=== PATIENT | male | born 1965 | race Caucasian/White ===

== ENCOUNTER 2016-07-08 21:36 | Emergency (ER) | payer MEDICARE, OTHER ==
[~2016-07-08] VITALS: Ht 160 cm; Wt 81.8 kg
[~2016-07-08 21:36] MED LIST: AMLO-218 PO; BACL20TA PO; CEPH-443 PO; CIPR500T4 PO; DIAZ10TA4 PO; FENO145T25 PO; FER325 PO; FOLI-49 PO; GABA-526 PO; HYDR-2086 PO; IMIP25TA3 PO; LORA-441 PO; METO5TAB11 PO; OXYB5TAB7 PO; SENN8.6C3 PO; WARF2.5T PO; ZOLP10TA5 PO
[2016-07-08] MEDS ORDERED: ONDANSETRON 4 MG INJ IV STA (21:47)
[2016-07-08 21:50] VITALS: Ht 160 cm; Wt 81.8 kg
[2016-07-08 22:18] LABS: BASOPHILS % 0.6 % (0.0-2.0); EOSINOPHILS # 0.2 10^3/ul (0.0-0.5); EOSINOPHILS % 2.6 % (0.0-7.0); HEMATOCRIT 45.4 % (42.0-52.0); HEMOGLOBIN 15.4 g/dl (14.0-18.0); LYMPHOCYTES % 28.1 % (15.0-51.0); MEAN CORPUSCULAR HEMOGLOBIN 30.2 pg (29.0-33.0); MEAN CORPUSCULAR HGB CONC 33.9 g/dl (32.0-37.0); MEAN CORPUSCULAR VOLUME 89.3 fl (82.0-101.0); MEAN PLATELET VOLUME 7.7 fl (7.4-10.4); MONOCYTE # 0.4 10^3/ul (0.3-0.9); MONOCYTES % 6.3 % (0.0-11.0); NEUTROPHIL # 4.4 10^3/ul (1.6-7.5); NEUTROPHILS % 62.4 % (39.0-77.0); PLATELET COUNT 264 10^3/UL (140-440); RED BLOOD COUNT 5.08 10^6/ul (4.70-6.10); UNCORRECTED WBC 7.1 10^3/ul (4.8-10.8); WHITE BLOOD COUNT 7.1 10^3/ul (4.8-10.8)
[2016-07-08 22:20] LABS: CONDITION 1; LH ANALYZER COMMENTS 1
[2016-07-08 22:29] LABS: INR 0.96; PROTIME 12.8 Sec (12.2-14.2)
[2016-07-08 22:30] LABS: PARTIAL THROMBOPLASTIN TIME 31.1 Sec (25.0-35.0)
[2016-07-08] MEDS ORDERED: LORAZEPAM 2 MG INJ IV ONE (22:30)
[2016-07-08 22:32] LABS: CHLORIDE 102 mmol/L (97-110); POTASSIUM 3.8 mmol/L (3.5-5.1); SODIUM 144 mmol/L (135-144)
[2016-07-08 22:35] LABS: ANION GAP 17 (8-16); CARBON DIOXIDE 29 mmol/L (21-31); CREATININE 0.69 mg/dl (0.61-1.24)
[2016-07-08 22:36] LABS: BLOOD UREA NITROGEN 5 mg/dl (7-20); CALCIUM 9.5 mg/dl (8.4-10.2); GLUCOSE 82 mg/dl (70-220)
[2016-07-08 22:41] LABS: ADD UMIC YES; URINE BILIRUBIN (Dip) NEGATIVE (NEGATIVE); URINE BLOOD (Dip) TRACE (NEGATIVE); URINE COLOR LT. YELLOW (YELLOW); URINE GLUCOSE (Dip) NEGATIVE (NEGATIVE); URINE KETONES (Dip) NEGATIVE (NEGATIVE); URINE LEUKOCYTE ESTERASE (Dip) 2+ (NEGATIVE); URINE NITRITE (Dip) POSITIVE (NEGATIVE); URINE TOTAL PROTEIN (Dip) NEGATIVE (NEGATIVE); URINE UROBILINOGEN (Dip) 0.2 E.U./dL (0.1-1.0)
[2016-07-08 22:59] LABS: TROPONIN-I < 0.012 ng/ml (0.00-0.12)
[2016-07-08 23:14] LABS: BACTERIA,URINE RARE; SQUAMOUS EPITHELIAL CELL,UR RARE; URINE RBCS 0-2 /HPF (0)
--- NOTE | 2016-07-08 23:49 | RADRPT ---
PROCEDURE: XR Chest. CLINICAL INDICATION: Chest pain TECHNIQUE: Single frontal chest x-ray. COMPARISON: 11/27/2014 FINDINGS: The lungs are adequately expanded and clear. There is no focal consolidation, pleural effusion, or pneumothorax. The heart and mediastinal contours are unremarkable. There is mild deformity of the l eft fourth rib which may be from prior trauma, unchanged. There are no acute fractures. RPTAT: HTLT IMPRESSION: No acute cardiopulmonary abnormality. .Rosalinda Rodriguez MD, MD Date Time Electronically viewed and signed by .Rosalinda Rodriguez MD, on 07/08/2016 23:49 .T/
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
[2016-07-09] MEDS ORDERED: AMOX1TAB10 PO (00:07)
[2016-07-09] MEDS ORDERED: LORA1TAB PO (00:07)
[2016-07-09 00:23] VITALS: BP 98/66; PULSE 67; RESP 18; TEMP 98.5
== END 2016-07-09 00:25 | disposition home or self-care (01) ==
LOC: E/R 21:36
DX: R00.2 Palpitations (principal); F41.9 Anxiety disorder, unspecified; N30.00 Acute cystitis without hematuria; F17.210 Nicotine dependence, cigarettes, uncomplicated; Z79.01 Long term (current) use of anticoagulants
CPT/HCPCS: 36415; 71010; 80048; 81001; 84484; 85025; 85610; 85730; 87086; 93005; 96374; 96375; 99285; J2060; J2405; 81003

== ENCOUNTER 2016-10-10 11:53 | Emergency (ER) | payer MEDICARE, OTHER ==
[~2016-10-10] VITALS: Ht 167.6 cm; Wt 75.0 kg
[~2016-10-10 11:53] MED LIST changes: +AMOX1TAB10 PO; +LORA1TAB PO
[2016-10-10 11:55] VITALS: Ht 167.6 cm; Wt 75.0 kg
[2016-10-10] MEDS ORDERED: ONDANSETRON (ODT) 4 MG TAB ODT STA (12:05)
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
== END 2016-10-10 12:23 | disposition home or self-care (01) ==
LOC: E/R 11:53
DX: Z46.6 Encounter for fitting and adjustment of urinary device (principal); F17.210 Nicotine dependence, cigarettes, uncomplicated; Z79.01 Long term (current) use of anticoagulants

== ENCOUNTER 2017-03-30 10:12 | Emergency (ER) | payer MEDICARE, OTHER ==
[~2017-03-30] VITALS: Ht 160 cm; Wt 78.0 kg
[2017-03-30 10:22] VITALS: Ht 160 cm; Wt 78.0 kg
[2017-03-30] MEDS ORDERED: SOD CHLORIDE 0.9% 1,000 ML IV STA (10:27)
[2017-03-30] MEDS ORDERED: ASPIRIN 325 MG TAB PO STA (10:27)
[2017-03-30] MEDS ORDERED: ONDANSETRON 4 MG INJ IV STA (10:27)
[2017-03-30] MEDS ORDERED: HYDROmorphONE 1 MG/ML SYG IV STA (10:27)
[2017-03-30] MEDS ORDERED: LEVOFLOXACIN 500MG/D5W (PMX) 100 ML IVPB ONE (11:00)
--- NOTE | 2017-03-30 11:00 | RADRPT ---
PROCEDURE: XR Chest AP portable CLINICAL INDICATION: Chest pain TECHNIQUE: An AP portable radiograph of the chest was submitted. COMPARISON: 07/08/2016 FINDINGS: Support Hardware: None Cardiovascular: The cardiovascular silhouette appears unremarkable. Lung Brooke: The lung brooke appear clear with no nodule, alveolar infiltrate, or interstitial promi nence evident. Pleural Spaces: No pneumothorax or pleural effusion is identified. Osseous Structures: The osseous structures appear intact. Soft Tissues: The soft tissues appear unremarkable. IMPRESSION: Stable and unremarkable portable chest. Physician Volodymyr Date Time Electronically viewed and signed by Benjie Gómez Physician on 03/30/2017 11:00 RH/
[2017-03-30] MEDS ORDERED: DIPHENHYDRAMINE 50 MG INJ ONE (12:19)
[2017-03-30] MEDS ORDERED: DIPHENHYDRAMINE 50 MG INJ IV ONE (12:30)
[2017-03-30] MEDS ORDERED: APIX5TAB PO (12:33)
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
[2017-03-30 12:54] VITALS: BP 149/86; PULSE 62; RESP 18; TEMP 98.1
== END 2017-03-30 13:00 | disposition home or self-care (01) ==
LOC: E/R 10:12
DX: N39.0 Urinary tract infection, site not specified (principal); M94.0 Chondrocostal junction syndrome [Tietze]; R40.2142 Coma scale, eyes open, spontaneous, at arrival to emergency department; R40.2252 Coma scale, best verbal response, oriented, at arrival to emergency department; R40.2362 Coma scale, best motor response, obeys commands, at arrival to emergency department; Z87.891 Personal history of nicotine dependence
CPT/HCPCS: 71010; 80053; 81001; 82550; 82553; 83880; 84484; 85025; 85610; 85730; 93005; 96374; 96375; 99285; J1170; J1200; J1956; J2405; J7030

== ENCOUNTER 2017-05-30 12:00 | Emergency (ER) | END 2017-05-30 14:26 | disposition home or self-care (01) ==

== ENCOUNTER 2017-12-21 21:05 | Emergency (ER) | END 2017-12-22 00:34 | disposition home or self-care (01) ==

== ENCOUNTER 2018-02-08 17:49 | Emergency (ER) | END 2018-02-08 18:48 | disposition home or self-care (01) ==

== ENCOUNTER 2018-05-03 23:24 | Emergency (ER) | END 2018-05-04 03:07 | disposition home or self-care (01) ==